=== PATIENT | male | born 1980 | race Two or more races ===

== ENCOUNTER 2016-08-20 10:02 | Inpatient (IN) | payer MEDICAID ==
[2016-08-20 10:07] VITALS: BMI 45.6
[2016-08-20] MEDS ORDERED: Sodium Chloride 0.9% 1,000 ML IV ONE (10:25)
[2016-08-20] MEDS ORDERED: Sodium Chloride 0.9% 1,000 ML ONE (10:31)
--- NOTE | 2016-08-20 10:33 | C.PDOC ---
History Of Present Illness 36 y/o male with Hx of HTN and pre-diabetes presents to ED sent by Dr. Oconnor for evaluation of pararectal abscess patient has had for " a long time". Patient denies fever, chills, n/v/d or any other complaints at this time. Dr. Oconnor will be taking patient to OR today for removal of abscess. Time Seen by Provider: 08/20/16 10:15 Chief Complaint (Nursing): Abnormal Skin Integrity History Per: Patient History/Exam Limitations: no limitations Onset/Duration Of Symptoms: Days Current Symptoms Are (Timing): Still Present Location Of Injury: Left: Buttock Past Medical History Reviewed: Historical Data, Nursing Documentation, Vital Signs Vital Signs: Last Vital Signs Temp 97.6 F 08/20/16 10:07 Pulse 86 08/20/16 10:07 Resp 20 08/20/16 10:07 BP 132/89 08/20/16 10:07 Pulse Ox 95 08/20/16 11:24 - Medical History PMH: HTN, Hypercholesterolemia - [facility] Procedures CLOSED ENDOSCOPIC BIOPSY OF LARGE INTESTINE (09/29/14) Family History: States: No Known Family Hx - Social History Hx Alcohol Use: No Hx Substance Use: No Review Of Systems Except As Marked, All Systems Reviewed And Found Negative. Constitutional: Negative for: Fever, Chills Gastrointestinal: Positive for: Rectal Pain. Negative for: Nausea, Vomiting, Diarrhea Musculoskeletal: Negative for: Back Pain Physical Exam - Physical Exam Appears: Non-toxic, No Acute Distress Skin: Normal Color, Warm Head: Atraumatic, Normacephalic Gastrointestinal/Abdominal: Soft, No Tenderness, No Guarding, No Rebound Rectal: Other (Erythematous pustule on left buttock) Extremity: Normal ROM, Capillary Refill (<2 seconds), No Deformity Neurological/Psych: Oriented x3 ED Course And Treatment - Laboratory Results Result Diagrams: 08/20/16 10:56 08/20/16 10:56 Lab Interpretation: Normal O2 Sat by Pulse Oximetry: 95 (RA) Pulse Ox Interpretation: Normal - Radiology CXR: Interpreted by Me CXR Interpretation: Yes: No Acute Disease Progress Note: Treated with IVF NSS. NPO Reassessment Condition: Unchanged - Physician Consult Information Physician Contacted: Keith Oconnor Outcome Of Conversation: admit for surgery Disposition Discussed With : Keith Oconnor Doctor Will See Patient In The: Hospital - Disposition Disposition: HOSPITALIZED Disposition Time: 11:30 Condition: STABLE - POA Present On Arrival: None - Clinical Impression Clinical Impression: Abscess - Scribe Statement The provider has reviewed the documentation as recorded by the Marcibe Ron Saldana All medical record entries made by the Marcibe were at my direction and personally dictated by me. I have reviewed the chart and agree that the record accurately reflects my personal performance of the history, physical exam, medical decision making, and the department course for this patient. I have also personally directed, reviewed, and agree with the discharge instructions and disposition. Decision To Admit - Pt Status Changed To: Hospital Disposition Of: Observation - . Bed Request Type: Regular Admitting Physician: Keith Oconnor Patient Diagnosis: Abscess
[2016-08-20 11:00] LABS: BASO # 0.1 K/uL (0.0-0.2); BASO % 0.6 % (0.0-2.0); EOS # 0.2 K/uL (0.0-0.7); EOS % 2.5 % (0.0-4.0); HEMOGLOBIN 15.6 g/dL (12.0-18.0); LYMPH # 2.5 K/uL (1.0-4.3); LYMPH % 30.1 % (20.0-40.0); MEAN CORPUSCULAR HEMOGLOBIN 31.6 pg (27.0-31.0); MEAN PLATELET VOLUME 8.8 fL (7.2-11.7); MONO # 0.5 K/uL (0.0-0.8); MONO % 5.8 % (0.0-10.0); NRBC % 0.1 % (0.0-2.0); RBC 4.94 Mil/uL (4.40-5.90); RED CELL DISTRIBUTION WIDTH 13.7 % (11.5-14.5); WHITE BLOOD COUNT 8.3 K/uL (4.8-10.8)
[2016-08-20 11:10] LABS: AST/SGOT 27 U/L (17-59); BLOOD UREA NITROGEN 11 mg/dL (9-20); GFR AFRICAN-AMERICAN > 60; GFR NON-AFRICAN AMERICAN > 60
[2016-08-20 11:11] LABS: ALT/SGPT 28 U/L (21-72)
[2016-08-20 11:14] LABS: SQUAMOUS EPITHIAL 1 /hpf (0-5); URINE BACTERIA RARE (<OCC); URINE BILIRUBIN NEGATIVE (NEGATIVE); URINE BLOOD NEGATIVE (NEGATIVE); URINE CLARITY Clear (Clear); URINE COLOR Yellow (YELLOW); URINE GLUCOSE (UA) NORMAL (Normal); URINE LEUKOCYTE ESTERASE NEG Leu/uL (Negative); URINE NITRATE NEGATIVE (NEGATIVE); URINE PROTEIN NEGATIVE (NEGATIVE); URINE UROBILINOGEN NORMAL mg/dL (0.2-1.0)
--- NOTE | 2016-08-20 12:45 | RAD ---
HISTORY: Cough r/o CHF COMPARISON: No prior. TECHNIQUE: Chest PA and lateral FINDINGS: LUNGS: The lungs are well inflated and clear. PLEURA: No significant pleural effusion identified. No pneumothorax apparent. CARDIOVASCULAR: Normal. OSSEOUS STRUCTURES: No significant abnormalities. VISUALIZED UPPER ABDOMEN: Normal. OTHER FINDINGS: None. IMPRESSION: No acute findings.
[2016-08-20] MEDS ORDERED: Lactated Ringer's 1,000 ML IV ONE ×2 (14:14)
[2016-08-20] MEDS ORDERED: ceFAZolin IV 1 gm in Dextrose 0 GM/0 ML BAG IVPB ONE (15:21)
[2016-08-20] MEDS ORDERED: Propofol 10 mg/ml Inj (20 ML) ONE ×2 (15:22→15:23)
[2016-08-20] MEDS ORDERED: Midazolam 2 MG/2 ML VIAL ONE (15:22)
[2016-08-20] MEDS ORDERED: Lidocaine 1% Inj (20ml) ONE (15:22)
[2016-08-20] MEDS ORDERED: Bupivacaine HCl 0.25% PF (10 ml) Inj ONE (15:22)
[2016-08-20] MEDS ORDERED: Succinylcholine Chloride 20 mg/ml Syr (5 ml) IV ONE (15:22)
[2016-08-20] MEDS: ceFAZolin IV 2 gm in Dextrose 1 GM/50 ML BAG IVPB ONE ×2 (15:35→15:40)
[2016-08-20] MEDS ORDERED: Oxycodone/Acetaminophen 5/325 mg Tab PO PRN (16:02)
[2016-08-20] MEDS ORDERED: HYDROmorphone 0.5 mg/0.5 ml ISec IVP PRN (16:07)
[2016-08-20] MEDS: ceFAZolin IV 1 gm in Dextrose 1 GM/50 ML BAG IVPB SCH (18:55)
[2016-08-21] MEDS: ceFAZolin IV 1 gm in Dextrose 1 GM/50 ML BAG IVPB SCH ×2 (02:46→10:36)
[2016-08-21 06:57] LABS: BASO % 0.2 % (0.0-2.0); EOS # 0.2 K/uL (0.0-0.7); EOS % 2.6 % (0.0-4.0); HEMOGLOBIN 14.4 g/dL (12.0-18.0); LYMPH # 2.8 K/uL (1.0-4.3); LYMPH % 30.9 % (20.0-40.0); MEAN CELL VOLUME 93.1 fL (80.0-94.0); MEAN CORPUSCULAR HEMOGLOBIN 30.7 pg (27.0-31.0); MEAN PLATELET VOLUME 9.2 fL (7.2-11.7); MONO # 0.6 K/uL (0.0-0.8); MONO % 7.2 % (0.0-10.0); NEUT # 5.3 K/uL (1.8-7.0); NEUT % 59.1 % (50.0-75.0); NRBC % 0.1 % (0.0-2.0); RBC 4.7 Mil/uL (4.40-5.90); RED CELL DISTRIBUTION WIDTH 13.6 % (11.5-14.5)
[2016-08-21 07:08] LABS: BLOOD UREA NITROGEN 11 mg/dL (9-20); GFR AFRICAN-AMERICAN > 60; GFR NON-AFRICAN AMERICAN > 60
[2016-08-21 07:09] LABS: CALCIUM 8.2 mg/dl (8.6-10.4)
[2016-08-21 08:56] VITALS: RESP 18
[2016-08-21] MEDS: Enoxaparin 40 mg Syringe SC SCH ×2 (10:37→10:39)
[2016-08-21 13:57] VITALS: BP 105/63; PULSE 82; TEMP 98.1; O2SAT 95
--- NOTE | 2016-08-22 00:30 | CARD ---
APPROVED REPORT EKG Measurement Heart [id number] <Conclusion> Normal sinus rhythm Normal ECG
== END 2016-08-21 15:55 | disposition home or self-care (01) | DRG 171 ==
LOC: C.ER 10:02 → C.9E 11:24 → C.6T 14:01
PROVIDERS: ADMIT Surgery; ATTEND Surgery
PROC: 0HB8XZZ Excision of Buttock Skin, External Approach (ICD-10-PCS; principal; 2016-08-20 14:00)
DX: K61.1 Rectal abscess (principal); I10 Essential (primary) hypertension; E78.00 Pure hypercholesterolemia, unspecified; R73.03 Prediabetes